=== PATIENT | female | born 1935 | race Caucasian/White ===

== ENCOUNTER 2020-12-27 16:28 | Observation (INO) | payer MEDICARE ==
[~2020-12-27] VITALS: Ht 167.6 cm; Wt 72.0 kg
[~2020-12-27 16:28] MED LIST: ASPIRIN EC LOW81 MG PO; CETIRIZ/PSE1 TAB PO; COQ PO; DICYCLOMINE10 MG PO; HYDROCHLOROT25 MG PO; LEVAQUIN750 MG PO; LEVOTHROID112 MCG PO; LEVOTHYROXIN112 MC1 PO; LEVOTHYROXIN125 MCG PO; LIPITOR20 MG PO; MELOXICAM15 MG PO; METHOCARBAM500 MG PO; PRAVASTATIN SOD20 MG PO; ROBITUSSIN AC10 ML PO; TESSALON PER100 MG PO
--- NOTE | 2020-12-27 16:50 | NUR ---
PT TO ROOM VIA W/C
--- NOTE | 2020-12-27 17:35 | NUR ---
PT IS ASSESSED AND SPO2 IS 94%. RR 35-38. LUNGS HAVE CRACKLES IN RIGHT LOWER LOBE AND DIMIN LEFT LOWER LOBE. PT IS TOLD THAT A ROOM IS GETTING CLEANED FOR HER AND THEN SHE WILL BE BRAUGHT BACK.
[2020-12-27 18:12] LABS: HEMATOCRIT 36.5 % (37.0-47.0); MEAN CELL VOLUME 88.6 fL CALC (80.0-100.0); MEAN CORPUSCULAR HGB 28.4 pG CALC (26.0-32.0); MEAN CORPUSCULAR HGB CONC 32.1 g/dL CAL (32.0-36.0); NEUT# 16.65 thou/uL (2.00-7.15); RED BLOOD COUNT 4.12 mill/uL (4.20-5.60); RED CELL DISTRI WIDTH 14.5 % (11.5-15.5)
[2020-12-27 18:15] LABS: HEMOGLOBIN 11.7 g/dl (12.0-16.0)
[2020-12-27 18:25] LABS: ALBUMIN 3.6 g/dL (3.2-5.0); ALKALINE PHOSPHATASE 157 u/l (38-126); ANION GAP 16 (6-22 (CALC)); BILIRUBIN, TOTAL 1.2 mg/dL (0.0-1.4); BUN 24 mg/dL (8-23); BUN/CREATININE RATIO 30 (12-20 (CALC)); CARBON DIOXIDE 25 mmol/l (22-30); CHLORIDE 90 mmol/l (95-108); CREATININE 0.8 mg/dL (0.5-1.0); GFR > 60 ML/MIN (>=60 (CALC)); GFR FOR AFR.AMER. > 60 ML/MIN (>=60 (CALC)); SGOT/AST 77 u/l (9-36); SODIUM 128 mmol/l (137-146); TOTAL PROTEIN 7.5 g/dL (6.3-8.2)
--- NOTE | 2020-12-27 18:30 | NUR ---
Reassessment of patient completed. No distress noted.
--- NOTE | 2020-12-27 19:25 | NUR ---
Reassessment of patient completed. No distress noted.
--- NOTE | 2020-12-27 20:00 | NUR ---
PT RESTING IV ARCHIE CONTINUES CALL ARY SALCEDO
[2020-12-27] MEDS ORDERED: LEVAQUIN750 M1 (20:43)
--- NOTE | 2020-12-27 21:01 | NUR ---
PT RESTING AWARE OFPENDING ADMISSION, AWAITING COVID RESULTS, CALL MCALLISTER WITHIN REACH
--- NOTE | 2020-12-27 21:40 | NUR ---
ROOM ASSIGNMENT RECD.
--- NOTE | 2020-12-27 21:47 | NUR ---
ATTEMPTED TO CALL REPORT WITH NO ANSWER
--- NOTE | 2020-12-27 22:39 | NUR ---
REPORT CALLED TO [facility]
--- NOTE | 2020-12-27 22:55 | NUR ---
PT AWARE OF PLANND ADMISSION, DAUGHTER AT BEDSIDE CALL MCALLISTER WITHIN REACH
--- NOTE | 2020-12-27 23:10 | NUR ---
PT TRANSFERRED TO MED SURG VIA WHEELCHAIR, ALL BELONGINGS SENT WITH PT
[2020-12-27 23:15] VITALS: BP 92/63
--- NOTE | 2020-12-27 23:15 | NUR ---
PT ARRIVED TO MED SURG UNIT VIA WC ACCOMPANIED BY ED NURSE. PT APPEARS STABLE AT THIS TIME. DAUGHTER ACCOMPANIED PT TO ANSWER QUESTIONS AND ASSIST WITH ADMISSION INFORMATION. SHE WAITED UNTIL OUT OF THE PT'S ROOM AND SHE INFORMED ME THAT THEY FEEL THE PT IS HAVING SOME DEMENTIA SYMPTOMS WITH RECENT CONFUSION AT TIMES, FORGETS WHAT DAY IT IS, ETC. SHE ASKED ME NOT TO PLACE THE BED ALARM ON HER MOTHER STATING THAT IT WILL "SET HER OFF." I EXPLAINED TO HER THAT IF SHE REMEMBERS TO CALL, WE WILL NOT NEED BED ALARM ON, BUT IF SHE FORGETS TO CALL FOR ASSISTANCE WE WILL NEED ALARM ON FOR SAFETY REASONS, SHE VERBALIZED UNDERSTANDING AND THIS WAS REVIEWED WITH PT. WHO ALSO VERBALIZED UNDERSTANDING.
--- NOTE | 2020-12-27 23:57 | NUR ---
PT MEDICATED AND ASSESSMENT HAS BEEN COMPLETED. DAUGHTER LEFT AFTER ASSISTING WITH ADMISSION. CALL LIGHT IS ON BST AND PT REMINDED THAT I NEED HER TO CALL TONIGHT UNTIL WE KNOW SHE WILL BE STEADY ON HER FEET USING BSC. SHE AGREED AND VERBALIZED UNDERSTANDING. LIGHTS TURNED LOW FOR COMFORT.
--- NOTE | 2020-12-28 | NUR ---
PT'S DAUGHTER ASKED TO HAVE PHYSICIAN CALL HER TOMORROW REGARDING PT'S TESTS AND TREATMENT CONCERNS REGARDING THE POSSIBILITY OF DEMENTIA DEVELOPMENT.
--- NOTE | 2020-12-28 02:00 | NUR ---
PT CALLED, UPON ENTERING THE ROOM SHE WAS IN BED ASKING ABOUT HER IV, IF SHE STILL NEEDED IT AND IF ANYTHING WAS RUNNING. I EXPLAINED TO HER THAT HER IVF WERE RUNNING, SHE DENIED ANY DISCOMFORT AT SITE/APPEARS HEALTHY AT THIS TIME. PT STATES THAT SHE IS HAVING DIFFICULTY SLEEPING AND FEELS FIDGETY AND COLD. WARMED BLANKET PROVIDED AND I ASSISTED HER TO REPOSITION IN THE BED FOR COMFORT. I OFFERED SOMETHING WARM TO SIP ON, DENIED. CALL LIGHT AT SIDE AND I ENCOURAGED HER TO CALL AGAIN IF SHE NEEDED ME.
--- NOTE | 2020-12-28 02:20 | NUR ---
PT CALLED, UPON ENTERING THE ROOM SHE WAS HAVING A COUGHIN ATTACK. I ENCOURAGED HER TO BLOW HER NOSE, ONCE SHE DID HER COUGHING SETTLED. I ASSISTED HER TO DRINK SMALL AMOUNT OF JUICE TO SOOTH HER THROAT. TISSUE AT BEDSIDE. I ASSISTED HER TO POSITION IN THE BED FOR COMFORT. IVF RUNNING TO LEFT ARM/SITE APPEARS HEALTHY.
[2020-12-28 03:50] VITALS: BP 118/87
--- NOTE | 2020-12-28 05:00 | NUR ---
PT BERNABE SOUNDED, PT HAD HER ARM FOLDED, REMINDED HER TO STRAIGHTEN HER ARM AND ASSITED REPOSITIONING HER BLANKETS/COVERS FOR WARMTH. I HAVE TURNED THE ROOM WARM IT WILL ALLOW, BUT HAS A CHILL. WE MAY NEED TO MOVE PT IF ANOTHER ROOM IS AVAILABLE.
[2020-12-28 06:09] LABS: HEMATOCRIT 34.8 % (37.0-47.0); IMMATURE GRANULOCYTES 1.5 % (0.0-5.0); MEAN CELL VOLUME 89.5 fL CALC (80.0-100.0); MEAN CORPUSCULAR HGB 28.3 pG CALC (26.0-32.0); MEAN CORPUSCULAR HGB CONC 31.6 g/dL CAL (32.0-36.0); NEUT# 18.49 thou/uL (2.00-7.15); RED BLOOD COUNT 3.89 mill/uL (4.20-5.60); RED CELL DISTRI WIDTH 14.6 % (11.5-15.5)
[2020-12-28 06:35] LABS: ALKALINE PHOSPHATASE 144 u/l (38-126); BUN 24 mg/dL (8-23); BUN/CREATININE RATIO 31 (12-20 (CALC)); CALCULATED LDLCHOLESTEROL 64 mg/dL (62-129 (CALC)); CARBON DIOXIDE 26 mmol/l (22-30); CHLORIDE 91 mmol/l (95-108); CREATININE 0.8 mg/dL (0.5-1.0); GFR > 60 ML/MIN (>=60 (CALC)); GFR FOR AFR.AMER. > 60 ML/MIN (>=60 (CALC)); HDL CHOLESTEROL 12 mg/dL (>=40); MAGNESIUM 1.6 mg/dL (1.6-2.3); SGOT/AST 108 u/l (9-36); SODIUM 128 mmol/l (137-146); TOTAL TRIGLYCERIDES 123 mg/dl (30-149); VLDL CHOLESTROL 25 mg/dl (0-48 (CALC))
[2020-12-28 06:36] LABS: ALBUMIN 2.8 g/dL (3.2-5.0); ANION GAP 15 (6-22 (CALC)); CHOLESTEROL HDL RATIO 8.4 (<4.4 (CALC)); POTASSIUM 3.9 mmol/l (3.5-5.1); TOTAL CHOLESTEROL 101 mg/dl (0-199)
--- NOTE | 2020-12-28 07:31 | NUR ---
Patient is screened for intervention and may benefit from consult including ST screen
--- NOTE | 2020-12-28 08:15 | NUR ---
PT UP IN BED EATING BREAKFAST. C/O PRODUCTIVE, MOIST COUGH. VS WNL. ON ROOM AIR. 02 SATS AT 95%.LUNG SOUNDS ARE CTA.
--- NOTE | 2020-12-28 08:30 | NUR ---
C/O GEN BODY DISCOMFORT, GIVEN PRN TYLENOL. RELIEF STATED BY PT.
[2020-12-28 08:39] VITALS: BP 141/71
--- NOTE | 2020-12-28 10:20 | NUR ---
Pt screened by ST. Patient would benefit from swallow evaluation d/t RLL PNA. Discussed with medical team.
[2020-12-28] MEDS ORDERED: ALENDRONATE35 MG PO (11:46)
[2020-12-28] MEDS ORDERED: LEVOTHYROXIN125 MCG PO (11:47)
--- NOTE | 2020-12-28 12:44 | NUR ---
PT IS LAYING IN BED RESTING. STATED RELIEF WITH PRN PAIN MED. RESPIRATIONS EVEN AND UNLABORED. APPEARS IN NO ACUTE DISTRESS AT THIS TIME.
[2020-12-28 14:56] VITALS: BP 127/76
--- NOTE | 2020-12-28 16:07 | NUR ---
PT IS LAYING IN BED AT HIS TIME. AMBULATED TO THE BATHROOM WITH STAND BY ASSISTANCE. NO C/O SOB OR PAIN.
[2020-12-28 18:49] VITALS: BP 128/81
--- NOTE | 2020-12-28 20:05 | NUR ---
PT AWAKE, REPORTS FEELING SOMEWHAT BETTER. I ASKED HER IF SHE IS USING HER IS, WHICH IS ON HER BST W/IN REACH. SHE DENIED STATING "I WAS AFRAID IT WILL MAKE ME COUGH." I EDUCATED HER ON ITS USE AND OPENING THE LUNGS TO HELP IMPROVE PNEUMONIA, VERBALIZED UNDERSTANDING. SHE ASKED IF THERE IS ANYTHING WE CAN GIVE HER FOR THE COUGH TONIGHT, STATING SHE HAD TROUBLE SLEEPING BECAUSE OF IT LAST NIGHT, I WILL NOTIFY PHYSICIAN OF REQUEST.
--- NOTE | 2020-12-28 21:00 | NUR ---
PT MEDICATED ORDERS PROVIDE AND ASSESSMENT COMPLETED. PT DEMONSTRATED IS USAGE WITH 750 PER BREATH. I INSTRUCTED HER TO TAKE 1X BREATH EVERY 10 MINUTES WHILE AWAKE, SHE VERBALIZED UNDERSTANDING.
--- NOTE | 2020-12-28 21:25 | NUR ---
PT MEDICATED FOR COUGH AND DRY IRRITATED THROAT AT THIS TIME. LIGHTS TURNED DOWN AND TV ARE OFF. PT ATTEMPTING TO GO TO SLEEP. GINGERALE OVER ICE ALSO PROVIDED AT THIS TIME. CALL LIGHT W/IN REACH. IV ANTIBIOTIC THERAPY IS RUNNING TO LAC SITE/APPEARS HEALTHY.
--- NOTE | 2020-12-29 00:05 | NUR ---
PT IS SLEEPING, NO S/O DISTRESS NOTED. CALL LIGHT AT SIDE.
--- NOTE | 2020-12-29 03:52 | NUR ---
lab is in with pt obtaining blood draw. Pt denies any needs from me at this time.
[2020-12-29 04:00] VITALS: BP 156/84
[2020-12-29 05:15] LABS: HEMATOCRIT 35.5 % (37.0-47.0); HEMOGLOBIN 11.2 g/dl (12.0-16.0); MEAN CELL VOLUME 87.9 fL CALC (80.0-100.0); MEAN CORPUSCULAR HGB 27.7 pG CALC (26.0-32.0); MEAN CORPUSCULAR HGB CONC 31.5 g/dL CAL (32.0-36.0); RED BLOOD COUNT 4.04 mill/uL (4.20-5.60); RED CELL DISTRI WIDTH 14.7 % (11.5-15.5)
[2020-12-29 05:48] LABS: ANION GAP 14 (6-22 (CALC)); BUN 18 mg/dL (8-23); BUN/CREATININE RATIO 28 (12-20 (CALC)); CARBON DIOXIDE 26 mmol/l (22-30); CHLORIDE 94 mmol/l (95-108); CREATININE 0.7 mg/dL (0.5-1.0); GFR > 60 ML/MIN (>=60 (CALC)); GFR FOR AFR.AMER. > 60 ML/MIN (>=60 (CALC)); MAGNESIUM 1.4 mg/dL (1.6-2.3); POTASSIUM 3.4 mmol/l (3.5-5.1); SODIUM 131 mmol/l (137-146)
--- NOTE | 2020-12-29 05:57 | NUR ---
PT MEDICATED ORDERS PROVIDE AND PT ASSISTED UP TO BSC. PT CLEANED OF INCONTINENT URINE. UNDERWEAR AND PAD ARE BACK ON. PT BACK IN BED. CALL LIGHT AT BEDSIDE.
--- NOTE | 2020-12-29 07:00 | NUR ---
PT REPORT RECEIVED FROM NIGHT NURSEJACKSON.
[2020-12-29 08:00] VITALS: BP 124/73
--- NOTE | 2020-12-29 08:00 | NUR ---
PT WAS FOUND RESTING IN BED IN SEMI-FOWLERS POSITION;PT IS A&O X3;ASSESSMENT WAS COMPLETED;VS ARE WITHIN NORMAL LIMITS; PT HAS NO REPORTS OF PAIN;HEART SOUNDS ARE REGULAR IN RATE AND RHYTHM;LUNG SOUNDS ARE CLEAR;PT HAS A PRODUCTIVE COUGH PRODUCING THICK, CLEAR SPUTUM;#22G IV IN LAC IS RUNNING NS @75 ML/HR;IV SITE IS PATENT AND FREE OF COMPLICATIONSN AT THIS TIME;PT DOES HAVE 1+PITTING EDEMA PRESENT IN LEFT ARM;PT WAS ENCOURAGED TO TRY AND AMBULATE MORE THROUGHOUT THE DAY AND TO CALL FOR ASSISTANCE; SAFETY PRECAUTIONS IN PLACE;CALL LIGHT WITHIN REACH;BED IN LOWEST POSITION;WILL CONTINUE TO MONITOR.
--- NOTE | 2020-12-29 11:01 | NUR ---
PHYSICAL THERAPY WORKING WITH PT
--- NOTE | 2020-12-29 12:00 | NUR ---
PT WAS FOUND RESTING IN BED EATING LUNCH;PT HAS NO REPORTS OF PAIN AT THIS TIME;SAFETY PRECAUTIONS IN PLACE;CALL LIGHT WITHIN REACH;BED IN LOWEST POSITION;WILL CONTINUE TO MONITOR.
[2020-12-29] MEDS ORDERED: ZOFRAN4 MG/TAB PO (14:34)
[2020-12-29] MEDS ORDERED: PROTONIX40 M2 PO (14:34)
[2020-12-29] MEDS ORDERED: ROBITUSSIN200 MG/10 PO (14:34)
[2020-12-29] MEDS ORDERED: LEVAQUIN750 M1 PO (14:34)
[2020-12-29 15:00] VITALS: BP 127/66
--- NOTE | 2020-12-29 16:00 | NUR ---
PT WAS FOUND RESTING IN BED IN SEMI-FOWLERS POSITION;PT REPORTS NO PAIN AT THIS TIME;#22G IV IN LAC IS RUNNING NS @75 ML/HR;IV SITE IS PATENT AND FREE OF COMPLICATIONS AT THIS TIME;SAFETY PRECAUTIONS IN PLACE;CALL LIGHT WITHIN REACH;BED IN LOWEST POSITION;WILL CONTINUE TO MONITOR.
[2020-12-29 19:00] VITALS: BP 118/71
--- NOTE | 2020-12-29 20:01 | NUR ---
PHYSICAL ASSESMENT COMPLETE. PT CURRENTLY DENIES PAIN OR DISCOMFORT. SCHEDULED MEDICATIONS AND PRN MEDICATION ADMINISTERED, SEE E-MAR. PT DENIES ANY NEEDS AT THIS TIME. PLAN OF CARE REVIEWED, PT DENIES QUESTIONS, VERBALIZES UNDERSTANDING. ITEMS WITHIN REACH, BED LOCKED IN LOW POSITION W/ BEDRAILS UP X2. CALL MCALLISTER WITHIN REACH, AGREES TO CALL PRN.
--- NOTE | 2020-12-30 00:09 | NUR ---
PT LAYING IN BED WITH EYES CLOSED, APPEARS TO BE SLEEPING, APPEARS COMFORTABLE AND IN NO DISTRESS. RESPIRATIONS REGULAR AND UNLABORED. ITEMS REMAIN WITHIN REACH, CALL MCALLISTER REMAINS WITHIN REACH. BED REMAINS LOCKED AND IN LOW POSITION WITH BEDRAILS UP X2. WILL CONTINUE TO MONITOR.
--- NOTE | 2020-12-30 01:56 | NUR ---
PT COUGHING. PROVIDED ROBITUSSIN COUGH SYRUP,AMD A LOZENGER. WILL CONTINUE TO MONITOR.
--- NOTE | 2020-12-30 03:12 | NUR ---
PT RESTING IN BED, NO SIGNS OF DISTRESS NOTED, RESP EVEN AND UNLABORED. PT VOICES NO NEEDS OR COMPLAINTS AT THIS TIME. CALL LIGHT IN REACH, CONTINUE TO MONITOR.
[2020-12-30 04:28] VITALS: BP 124/71
[2020-12-30 04:50] LABS: HEMATOCRIT 33.2 % (37.0-47.0); HEMOGLOBIN 10.6 g/dl (12.0-16.0); MEAN CORPUSCULAR HGB 28.4 pG CALC (26.0-32.0); MEAN CORPUSCULAR HGB CONC 31.9 g/dL CAL (32.0-36.0); RED BLOOD COUNT 3.73 mill/uL (4.20-5.60)
[2020-12-30 05:16] LABS: ANION GAP 13 (6-22 (CALC)); BUN 14 mg/dL (8-23); BUN/CREATININE RATIO 22 (12-20 (CALC)); CARBON DIOXIDE 27 mmol/l (22-30); CHLORIDE 95 mmol/l (95-108); CREATININE 0.6 mg/dL (0.5-1.0); GFR > 60 ML/MIN (>=60 (CALC)); GFR FOR AFR.AMER. > 60 ML/MIN (>=60 (CALC)); POTASSIUM 3.8 mmol/l (3.5-5.1); SODIUM 131 mmol/l (137-146)
--- NOTE | 2020-12-30 07:00 | NUR ---
PT REPORT RECEIVED FROM NIGHT NURSEROMEL.
[2020-12-30 07:21] VITALS: BP 119/59
--- NOTE | 2020-12-30 08:00 | NUR ---
PT WAS FOUND RESTING IN BED IN SEMI-FOWLERS POSITION;PT IS ALERT AND ORIENTED;PT HAS NO REPORTS OF PAIN;HEART SOUNDS ARE REGULAR IN RATE AND RHYTHM;LUNG SOUNDS ARE CLEAR;RESPIRATIONS ARE EVEN AND UNLABORED ON RA;PT HAS A PRODUCTIVE COUGH WITH CLEAR, THICK MUCUS NOTED;#22G IV IN LAC IS RUNNING NS @75 ML/HR;IV SITE IS PATENT AND FREE OF COMPLICATIONS AT THIS TIME;SAFETY PRECAUTIONS IN PLACE;CALL LIGHT WITHIN REACH;BED IN LOWEST POSITION;WILL CONTINUE TO MONITOR.
--- NOTE | 2020-12-30 08:45 | NUR ---
AND SHARLENE CARTY AT BEDSIDE DISCUSSING POC.
--- NOTE | 2020-12-30 09:15 | NUR ---
PHYSICAL THERAPY IS IN ROOM WORKING WITH PATIENT
--- NOTE | 2020-12-30 09:23 | NUR ---
Upon entering room pt. is found standing at sink with attending nurse standing by. Pt. was informed and is in agreement to participate in gait training. Using a FWW, on room air and with CGA pt. ambulated 100 feet with clinician providing intermittent verbal cues for heel strike, equal step length, posture and for how to complete turn. Pt. returned to room in which she is guided with backing up into recliner and using UE's to gently lower. No SOB is noted, pt. is very pleasantly conversing about her family and answered questions appropriately. We reviewed how to use call light and pt. verbalized understanding. Bedside table left within reach. AMPAC score unchanged.
--- NOTE | 2020-12-30 09:33 | NUR ---
PT TAKEN FOR 6 MINUTE WALK TEST, SEEN 96% PRIOR TO WALKING, LOWEST DURING WALK WAS 90%, RECOVERED TO 94% AFTER WALK. PT TOLERATED WELL.
--- NOTE | 2020-12-30 11:55 | NUR ---
Discharge instructions given. Patient verbalizes understanding of same. Discharged in stable condition via Wheelchair to Home with family. All belongings sent with pt. PT WAS GIVEN DISCHARGE PACKET;DISCHARGE INSTRUCTIONS WERE GIVEN ALONG WITH PRESCRIPTIONS FOR NEW MEDICATIONS;PT VERBALIZED UNDERSTANDING;SIGNATURE OBTAINED;PT WAS TRANSPORTED VIA WC IN STABLE CONDITION TO [facility] ACCOMPANIED BY NURSE CHIRINOS;ALL PT BELONGINGS WERE SENT WITH PT;PT WILL BE TRANSPORTED HOME WITH FAMILY;PT WILL RECEIVE HOME HEALTH WITH [facility] AND PHYSICAL THERAPY WELL.
--- NOTE | 2020-12-30 11:55 | NUR ---
PT WAS GIVEN DISCHARGE PACKET;DISCHARGE INSTRUCTIONS WERE GIVEN AND EXPLAINED ALONG WITH THE NEW PRESCRIPTIONS;PT VERBALIZED UNDERSTANDING;PT SIGNATURE OBTAINED;PT WILL BE DISCHARGED HOME WITH [facility] AND SHE WILL HAVE PHYSICAL THERAPY WELL;PT IV WAS REMOVED;CATHETER INTACT UPON REMOVAL AND SITE WAS FREE OF COMPLICATIONS.
== END 2020-12-30 13:03 | disposition home health service (06) ==
LOC: ED 16:28 → ED-I 20:13 → ED 20:23 → MS2 20:24
PROVIDERS: Emergency Medicine; Nurse Practitioner; ADMIT Internal Medicine; ATTEND Internal Medicine
DX: J18.9 Pneumonia, unspecified organism (principal); I10 Essential (primary) hypertension; E03.9 Hypothyroidism, unspecified; E78.5 Hyperlipidemia, unspecified; E87.1 Hypo-osmolality and hyponatremia; E87.6 Hypokalemia; E83.42 Hypomagnesemia; F17.210 Nicotine dependence, cigarettes, uncomplicated; Z90.11 Acquired absence of right breast and nipple; Z20.822 Contact with and (suspected) exposure to COVID-19
CPT/HCPCS: J1650; J3475; S0164

== ENCOUNTER 2021-01-16 10:56 | Emergency (ER) | payer MEDICARE ==
[~2021-01-16] VITALS: Ht 167.6 cm; Wt 83.0 kg
[~2021-01-16 10:56] MED LIST changes: +ALENDRONATE35 MG PO; +LEVAQUIN750 M1; +LEVAQUIN750 M1 PO; +PROTONIX40 M2 PO; +ROBITUSSIN200 MG/10 PO; +ZOFRAN4 MG/TAB PO
[2021-01-16] MEDS ORDERED: HYDROCHLOROTH12.5 MG PO (11:17)
[2021-01-16 11:43] LABS: HEMOGLOBIN 11.8 g/dl (12.0-16.0); IMMATURE GRANULOCYTES 0.5 % (0.0-5.0); MEAN CELL VOLUME 93.1 fL CALC (80.0-100.0); MEAN CORPUSCULAR HGB 28.9 pG CALC (26.0-32.0); MEAN CORPUSCULAR HGB CONC 31.1 g/dL CAL (32.0-36.0); NEUT# 13.3 thou/uL (2.00-7.15); RED BLOOD COUNT 4.08 mill/uL (4.20-5.60); RED CELL DISTRI WIDTH 16.3 % (11.5-15.5)
[2021-01-16 12:01] LABS: ALKALINE PHOSPHATASE 89 u/l (38-126); ANION GAP 11 (6-22 (CALC)); BILIRUBIN, TOTAL 1.3 mg/dL (0.0-1.4); BUN 16 mg/dL (8-23); BUN/CREATININE RATIO 25 (12-20 (CALC)); CARBON DIOXIDE 29 mmol/l (22-30); CHLORIDE 96 mmol/l (95-108); CREATININE 0.6 mg/dL (0.5-1.0); GFR > 60 ML/MIN (>=60 (CALC)); GFR FOR AFR.AMER. > 60 ML/MIN (>=60 (CALC)); LIPASE 31 u/l (23-300); SGOT/AST 27 u/l (9-36); SODIUM 133 mmol/l (137-146)
[2021-01-16 12:10] LABS: ALBUMIN 3.9 g/dL (3.2-5.0); TOTAL PROTEIN 7.6 g/dL (6.3-8.2)
[2021-01-16 12:50] LABS: D-DIMER 1.25 mg/L (0.19-0.60)
[2021-01-16 13:01] LABS: ACT PARTIAL THROMBO TIME 26.9 SECONDS (20.0-32.5); INTERNATIONAL NORMALIZED RATIO 1.2 RATIO (0.7-1.3); PROTHROMBIN TIME 12.1 SECONDS (9.0-12.5)
[2021-01-16 18:09] VITALS: BP 119/57
== END 2021-01-16 17:55 | disposition short-term general hospital (02) ==
LOC: ED 10:56 → ED-I 11:27 → ED 17:55
DX: R07.9 Chest pain, unspecified (principal); M54.9 Dorsalgia, unspecified; I71.4 Abdominal aortic aneurysm, without rupture; J18.9 Pneumonia, unspecified organism; I10 Essential (primary) hypertension; F17.200 Nicotine dependence, unspecified, uncomplicated; Z20.822 Contact with and (suspected) exposure to COVID-19
CPT/HCPCS: Q9967

== ENCOUNTER 2023-01-24 21:36 | Emergency (ER) | payer MEDICARE ==
[~2023-01-24] VITALS: Ht 165.1 cm; Wt 75.0 kg
[~2023-01-24 21:36] MED LIST changes: +HYDROCHLOROTH12.5 MG PO
[2023-01-24 23:23] LABS: URINE BILIRUBIN - DIPSTICK NEGATIVE (NEGATIVE); URINE BLOOD DIPSTICK NEGATIVE (NEGATIVE); URINE COLOR YELLOW; URINE GLUCOSE - DIPSTICK NEGATIVE (NEGATIVE); URINE KETONE NEGATIVE (NEGATIVE); URINE PROTEIN - DIPSTICK NEGATIVE (NEG-TRACE); URINE SPECIFIC GRAVITY 1.015
[2023-01-24 23:30] LABS: URINE NITRITE - DIPSTICK NEGATIVE (Negative)
[2023-01-24 23:34] LABS: URINE LEUK ESTERASE SMALL (NEGATIVE)
[2023-01-24 23:46] LABS: URINE BACTERIA MODERATE hpf; URINE SQUAMOUS EPITHELIAL CELL FEW EPI/hpf (0-FEW)
[2023-01-25 00:46] LABS: BASO% 0.5 % (0-3); EOS% 1.1 % (0-8); HEMOGLOBIN 11.5 g/dl (12.0-16.0); IMMATURE GRANULOCYTES 0.2 % (0.0-5.0); LYMPH% 19.2 % (15-41); MEAN CELL VOLUME 97.8 fL CALC (80.0-100.0); MEAN CORPUSCULAR HGB 31.3 pG CALC (26.0-32.0); MEAN CORPUSCULAR HGB CONC 31.9 g/dL CAL (32.0-36.0); MONO% 7.7 % (2-13); NEUT# 6.31 thou/uL (2.00-7.15); NEUT% 71.3 % (42-76); RED BLOOD COUNT 3.68 mill/uL (4.20-5.60); RED CELL DISTRI WIDTH 12.7 % (11.5-15.5)
[2023-01-25 01:01] LABS: CREATININE 1.1 mg/dL (0.5-1.0); POTASSIUM 3.7 mmol/l (3.5-5.1); TOTAL PROTEIN 6.5 g/dL (6.3-8.2)
[2023-01-25 01:03] LABS: BILIRUBIN, TOTAL 0.6 mg/dL (0.02-1.3)
[2023-01-25 03:16] VITALS: BP 135/79
== END 2023-01-25 01:53 | disposition short-term general hospital (02) ==
LOC: ED 21:36
PROVIDERS: Family Medicine
DX: S72.145A Nondisplaced intertrochanteric fracture of left femur, initial encounter for closed fracture (principal); I10 Essential (primary) hypertension; W01.0XXA Fall on same level from slipping, tripping and stumbling without subsequent striking against object, initial encounter; Y92.008 Other place in unspecified non-institutional (private) residence as the place of occurrence of the external cause